=== PATIENT | male | born 1990 | race Caucasian/White ===

== ENCOUNTER 2017-07-07 10:43 | Emergency (ER) | payer BC ==
--- NOTE | 2017-07-07 12:21 | UC ---
Abdominal Pain Male HPI - HPI Summary HPI Summary: 26M presents with abdominal pain, n/v/d since last night. He states pain is greatest in bilateral lower quadrants. He ate some questionable [place] food last night. He denies any fever. no one else is sick but no one else ate the food. has some frequnecy but no dysuria or hematuria. no flank pain. no cough or sore throat. no previous abdominal surgeries. <Echo Mcdaniel - Last Filed: 07/07/17 15:54> <Minnie Pink - Last Filed: 07/07/17 19:03> - History of Current Complaint Chief Complaint: UCGI Stated Complaint: STOMACH ACHE Time Seen by Provider: 07/07/17 11:49 - Allergies/Home Medications Allergies/Adverse Reactions: Allergies Allergy/AdvReac Type Severity Reaction Status Date / Time No Known Allergies Allergy Verified 07/07/17 11:35 PMH/Surg Hx/FS Hx/Imm Hx Endocrine History: Other Other Endocrine History: no DM Cardiovascular History: Other Other Cardiovascular History: no HTN - Surgical History Surgical History: None - Family History Known Family History: Negative: Cardiac Disease - Social History Alcohol Use: Rare Substance Use Type: Excessive Caffeine Smoking Status (MU): Current Some Day Smoker <Echo Mcdaniel - Last Filed: 07/07/17 15:54> Review of Systems Constitutional: Negative Respiratory: Negative Cardiovascular: Negative Gastrointestinal: Vomiting, Diarrhea, Nausea All Other Systems Reviewed And Are Negative: Yes <Echo Mcdaniel - Last Filed: 07/07/17 15:54> Physical Exam Triage Information Reviewed: Yes Appearance: Well-Appearing Vital Signs: Initial Vital Signs Temp 98.2 F 07/07/17 11:27 Pulse 81 07/07/17 11:27 Resp 18 07/07/17 11:27 BP 116/74 07/07/17 11:27 Vital Signs Reviewed: Yes Eyes: Positive: Conjunctiva Clear ENT: Positive: Normal ENT inspection, Pharynx normal, TMs normal Neck: Positive: Supple, Nontender, No Lymphadenopathy Respiratory: Positive: Lungs clear, Normal breath sounds Cardiovascular: Positive: RRR Abdomen Description: Positive: Nontender, Soft Bowel Sounds: Positive: Present Musculoskeletal Exam: Normal Neurological Exam: Normal Psychological Exam: Normal Skin Exam: Normal <Echo Mcdaniel - Last Filed: 07/07/17 15:54> Vital Signs: Initial Vital Signs Temp 98.2 F 07/07/17 11:27 Pulse 81 07/07/17 11:27 Resp 18 07/07/17 11:27 BP 116/74 07/07/17 11:27 <Minnie Pink - Last Filed: 07/07/17 19:03> Abd Pain Male Course/Dx - Course Course Of Treatment: 26M presents with abdominal pain, n/v/d since last night. He states pain is greatest in bilateral lower quadrants. He ate some questionable [place] food last night. He denies any fever. no one else is sick but no one else ate the food. has some frequnecy but no dysuria or hematuria. no flank pain. no cough or sore throat. no previous abdominal surgeries. on exam diffusely tender. advised that if pain localizes to RLQ to go to ED. will treat as infectious diarrhea with cipro. patient understands and agrees with plan. - Differential Dx/Clinical Impression Differential Diagnosis/HQI/PQRI: Gall Bladder Disease, Urinary Tract Infection, Other - gastroenteritis Provider Diagnoses: abdominal pain, n/v/d <Echo Mcdaniel - Last Filed: 07/07/17 15:54> Discharge <Echo Mcdaniel - Last Filed: 07/07/17 15:54> <Minnie Pink - Last Filed: 07/07/17 19:03> - Discharge Plan Condition: Stable Disposition: HOME Prescriptions: Ciprofloxacin TAB* [Cipro 500 MG TAB*] 500 mg PO BID #14 tab Ondansetron ODT TAB* [Zofran 4 MG Odt TAB*] 4 mg PO Q6H PRN #12 tab.odt PRN Reason: Nausea Patient Education Materials: Acute Diarrhea (ED) Forms: *School Release Referrals: No Primary Care Phys,NOPCP [Primary Care Provider] - Additional Instructions: Take antibiotic twice a day for 7 days Take zofran every 6 hours for nausea Drink small amounts of fluid as tolerated When able to eat follow BRAT diet: Bananas, rice, applesauce, toast Take ibuprofen or Tylenol for pain as needed every 6 hours Follow up with primary within 5 days Return to ED if develop fever that does not respond to Tylenol or ibuprofen, severe abdominal pain or pain located in right lower quadrant, or any new or worsening symptoms Attestation Statement User Type: Provider - I was available for consult. This patient was seen by the GEOVANI. The patient was not presented to, seen by, or examined by me. -Mulu <Minnie Pink - Last Filed: 07/07/17 19:03>
== END 2017-07-07 12:39 | disposition home or self-care (01) ==
LOC: UCCORT 10:43
DX: R10.30 Lower abdominal pain, unspecified (principal); F17.210 Nicotine dependence, cigarettes, uncomplicated
CPT/HCPCS: 81003; 87491; 87591; 99202; G0463